=== PATIENT | female | born 1935 | race Caucasian/White ===

== ENCOUNTER → 2016-07-01 18:44 | Outpatient (CLI) | payer MEDICARE ==
[2014-12-07 09:00] VITALS: BMI 30.9
[~2016-07-01 18:44] MED LIST: ELAVIL25 MG PO; PRILOSEC20 MG PO; PROZAC20 MG PO; SYNTHROID50 MCG PO
[2016-07-10 18:49] LABS: AEROBE ID Final report (())
== END | disposition home or self-care (01) ==
LOC: D.LABREF 18:44
PROVIDERS: Family Medicine
DX: J20.9 Acute bronchitis, unspecified (principal)

== ENCOUNTER → 2017-02-05 09:35 | Outpatient (CLI) | payer MEDICARE ==
[2014-12-07 09:00] VITALS: BMI 30.9
== END | disposition home or self-care (01) ==
LOC: D.RAD 02-04 08:00
DX: K44.9 Diaphragmatic hernia without obstruction or gangrene (principal)

== ENCOUNTER 2017-02-05 13:35 | Emergency (ER) | payer MEDICARE ==
[2014-12-07 09:00] VITALS: BMI 30.9
== END 2017-02-05 16:13 | disposition home or self-care (01) ==
LOC: D.ER 13:35
DX: S82.002A Unspecified fracture of left patella, initial encounter for closed fracture (principal); W01.0XXA Fall on same level from slipping, tripping and stumbling without subsequent striking against object, initial encounter; Y93.89 Activity, other specified; Y92.410 Unspecified street and highway as the place of occurrence of the external cause; S52.302A Unspecified fracture of shaft of left radius, initial encounter for closed fracture

== ENCOUNTER → 2017-04-07 08:33 | Outpatient (CLI) | payer MEDICARE ==
[2014-12-07 09:00] VITALS: BMI 30.9
--- NOTE | 2017-04-11 08:18 | EC ---
PATIENT:MARTIN DWYER DATE OF SERVICE: 04/07/17 SEX: F MEDICAL RECORD: [id number] DATE OF : 33 LOCATION:D[facility] AGE OF PATIENT: 82 ADMISSION DATE: 04/07/17 REFERRING PHYSICIAN: INTERPRETING PHYSICIAN: CRISS MAHER MD ECHOCARDIOGRAM REPORT ECHO CHARGES 4 ECHO COMPLETE CLINICAL DIAGNOSIS: HEART FAILURE,PALPITATIONS ECHOCARDIOGRAPHIC MEASUREMENTS (adult normal given) AC root (d.<3.7cm) 3.1 cm LV Septum d (<1.2 cm> 1.7 cm Valve Excursion 1.8 cm LV Septum (systole) 1.9 cm Left Atria (s.<4.0cm> 3.2 cm LVPW d(<1.2cm) 1.5 cm RV (d.<2.3cm) 2.7 cm LVPW (sytole) 2.0 cm LV diastole(<5.6CM) 4.4 cm MV E-F(>70mm/sec) cm LV systole 2.5 cm LVOT Diameter 1.8 cm MV exc.(>10mm) 1.6 cm Est.ejection fraction (50-75%) % Pericardial Effusion N DOPPLER: LVIT cm/sec A 121 cm/sec E 108 cm/sec LA cm/sec RVSP 54 mmHg LVOT 121 cm/sec AOP1/2T m/s Asc. Ao 181 cm/sec RVOT 104 cm/sec RA cm/sec PA 140 cm/sec AV Gradient Peak 13.11mmHg AV Mean 5.94 mmHg AV Area 1.9 cm MV Gradient Peak 8.03 mmHg MV Mean 2.13 mmHg MV Area cm COMMENTS: Slot Floor Supervisor: 2 ALTHEA RESTREPO Systematic Theology Professor: 4 Dr. Maher TAPE# PACS DATE OF SERVICE: 04/07/2017 PROCEDURE: Transthoracic echocardiogram. FINDINGS: 1. Left ventricle has owlt-us-jgsawumj concentric left ventricular hypertrophy with an ejection fraction of 65% to 70%. Inflow characteristics consistent with diastolic dysfunction. There are no regional wall motion abnormalities. 2. Mitral valve is mildly thickened, but otherwise normal with mild mitral regurgitation. ECHOCARDIOGRAM REPORT [id number] MARTIN DWYER 3. The aortic valve is shown to have mild aortic regurgitation without stenosis. The ascending aorta is normal size. 4. Right ventricle has right ventricular hypertrophy and mild dilatation. 5. Tricuspid valve has mild tricuspid regurgitation with elevated right ventricular systolic pressures of 50 to 55 mmHg. 6. The pericardium is normal. 7. The pulmonic valve is normal. 8. The right atrium is normal size, normal function. CONCLUSION: The patient has evidence of hypertensive heart disease, diastolic dysfunction, wjpwfzgzz-dt-dkkrwgzzfqhx LV systolic function and evidence of jzgb-wl-mthyzyvw pulmonary hypertension. TRANSINT:[id number] Voice Confirmation ID: [id number] DOCUMENT ID: [id number] CRISS MAHER MD at 0818 CC: [id number] DICTATION DATE: 04/08/17 08 SENIOR DATA SCIENTIST: 04/08/17 1216 [facility] CLI 04/07/17 [facility] [address] [place] [address]
== END | disposition home or self-care (01) ==
LOC: D.ECHO 08:33
DX: I50.30 Unspecified diastolic (congestive) heart failure (principal); R00.2 Palpitations; R07.9 Chest pain, unspecified; R09.89 Other specified symptoms and signs involving the circulatory and respiratory systems; R60.9 Edema, unspecified; R06.00 Dyspnea, unspecified; I10 Essential (primary) hypertension